=== PATIENT | male | born 1950 | race Hispanic/Latino ===

== ENCOUNTER 2018-01-13 07:57 | Outpatient (CLI) | payer BC ==
--- NOTE | 2018-01-13 09:37 | ULT ---
GALLBLADDER ULTRASOUND: History: Right upper quadrant pain x 1 month. Comparison: None. Technique: Utilizing a multihertz transducer, sonographic imaging of the right upper quadrant was per formed in the longitudinal and transverse plane. FINDINGS: Evaluation of the pancreas, aorta, and inferior vena cava is limited by bowel gas. Increased echogenicity of the liver may be due to hepatic steatosis or hepatocellular disease. Somewh at limited evaluation for hepatic masses and intrahepatic biliary dilatation. Suboptimal evaluation o f the common bile duct. No significant evidence of cholelithiasis, gallbladder wall thickening or pericholecystic fluid. Nega tive Goodrich's sign. Limited evaluation of the lower pole of the right kidney. No obvious masses. No hydronephrosis. Right kidney measures at least 9.7 cm in maximum dimension. IMPRESSION: Limited evaluation due to bowel gas. No sonographic evidence of cholelithiasis or cholecystitis. POS: [facility]
== END 2018-01-13 07:58 | disposition home or self-care (01) ==
LOC: MADULT 07:57
PROVIDERS: ATTEND Family Medicine
DX: R10.11 Right upper quadrant pain (principal)
CPT/HCPCS: 76705

== ENCOUNTER 2020-07-10 07:38 | Outpatient (CLI) | payer BC ==
[2020-07-10 08:22] LABS: ALT (SGPT) 27 U/L (8-55); AST (SGOT) 19 U/L (5-34); Albumin 4.2 g/dL (3.4-4.8); Alkaline Phosphatase 97 U/L (40-110); Anion Gap 14 mmol/L (10-20); BUN (Urea Nitrogen) 9 mg/dL (8.4-25.7); Bilirubin, Total 0.6 mg/dL (0.2-1.2); Calc. Creatinine Clearance 0 mL/min (70-130); Calcium 8.8 mg/dL (7.8-10.44); Carbon Dioxide 26 mmol/L (23-31); Chloride 105 mmol/L (98-107); Cholesterol 122 mg/dl (< 200 Desired); Globulin 3.2 g/dL (2.4-3.5); Glucose 141 mg/dL (80-115); HDL Cholesterol 41 mg/dL (>60 Neg Risk); LDL Cholesterol, Calculated 56 mg/dL; Potassium 4.1 mmol/L (3.5-5.1); Protein, Total 7.4 g/dL (5.8-8.1); Sodium 141 mmol/L (136-145); Triglycerides 127 mg/dL (Less than 150)
[2020-07-10 11:37] LABS: Hemoglobin A1c 7.8 % (4.0-6.0)
== END 2020-07-10 07:39 | disposition home or self-care (01) ==
LOC: MADLAB 07:38
PROVIDERS: ATTEND Family Medicine
DX: E78.5 Hyperlipidemia, unspecified (principal); E11.9 Type 2 diabetes mellitus without complications
CPT/HCPCS: 36415; 80053; 80061; 83036

== ENCOUNTER 2021-08-03 07:51 | Outpatient (CLI) | payer BC ==
[2021-08-03 10:34] LABS: ALT (SGPT) 26 U/L (8-55); AST (SGOT) 18 U/L (5-34); Albumin 4.4 g/dL (3.4-4.8); Alkaline Phosphatase 81 U/L (40-110); Anion Gap 16 mmol/L (10-20); BUN (Urea Nitrogen) 12 mg/dL (8.4-25.7); Bilirubin, Total 0.6 mg/dL (0.2-1.2); Calc. Creatinine Clearance 0 mL/min (70-130); Calcium 9.2 mg/dL (7.8-10.44); Carbon Dioxide 26 mmol/L (23-31); Cardiac Risk 2.8 (Less than 4.5); Chloride 103 mmol/L (98-107); Cholesterol 111 mg/dl (< 200 Desired); Glucose 141 mg/dL (80-115); HDL Cholesterol 40 mg/dL (>60 Neg Risk); LDL Cholesterol, Calculated 35 mg/dL; Potassium 4.4 mmol/L (3.5-5.1); Protein, Total 7.4 g/dL (5.8-8.1); Sodium 141 mmol/L (136-145); Triglycerides 179 mg/dL (Less than 150)
[2021-08-03 12:21] LABS: Hemoglobin A1c 7.2 % (4.0-6.0)
[2021-08-03 12:29] LABS: Creatinine, Urine 161.78 mg/dL (63-166); Microalbumin Urine 6.2 mg/dL (0.5-50.0); Microalbumin/Creat Ratio 38.3 mg/g (Less than 30)
== END 2021-08-03 07:52 | disposition home or self-care (01) ==
LOC: MADLAB 07:51
PROVIDERS: ATTEND Family Medicine
DX: E11.9 Type 2 diabetes mellitus without complications (principal); E78.2 Mixed hyperlipidemia; I10 Essential (primary) hypertension
CPT/HCPCS: 36415; 80053; 80061; 82043; 83036